=== PATIENT | female | born 1970 | race Caucasian/White ===

== ENCOUNTER 2023-01-01 19:10 | Emergency (ER) | payer BC, OTHER ==
[~2023-01-01] VITALS: Ht 167.6 cm; Wt 84.0 kg
[2023-01-01 19:38] VITALS: BP 122/58
[2023-01-01] MEDS ORDERED: TETANUS, DIPHTHERIA, PERTUSSIS VAC/PF 0.5ML (>10YR OLD) IM ONE (20:00)
[2023-01-01] MEDS ORDERED: LIDOCAINE HCL 1% 20ML VIAL (Pyxis) INJ INFIL ONE (20:00)
[2023-01-01] MEDS ORDERED: BACITRACIN ZINC OINT UDPKT TOP ONE (22:30)
[2023-01-01] MEDS ORDERED: SULF1TAB47 MT (22:30)
== END 2023-01-01 20:50 | disposition home or self-care (01) ==
LOC: ER 19:10
DX: S61.211A Laceration without foreign body of left index finger without damage to nail, initial encounter (principal); X58.XXXA Exposure to other specified factors, initial encounter; Y93.89 Activity, other specified; Y92.89 Other specified places as the place of occurrence of the external cause; Y99.8 Other external cause status; Z90.710 Acquired absence of both cervix and uterus; Z90.49 Acquired absence of other specified parts of digestive tract; Z88.0 Allergy status to penicillin
CPT/HCPCS: 12002; 90471; 90715; 99283; J3490; Z7610

== ENCOUNTER 2023-01-03 17:10 | Emergency (ER) | payer BC, OTHER ==
[~2023-01-03] VITALS: Ht 167.6 cm; Wt 84.0 kg
[~2023-01-03 17:10] MED LIST: SULF1TAB47 MT
[2023-01-03 17:24] VITALS: BP 99/77
== END 2023-01-03 21:12 | disposition left against medical advice (07) ==
LOC: ER 17:10
DX: Z48.00 Encounter for change or removal of nonsurgical wound dressing (principal); Z53.21 Procedure and treatment not carried out due to patient leaving prior to being seen by health care provider
CPT/HCPCS: 99281